=== PATIENT | male | born 1990 | race Caucasian/White ===

== ENCOUNTER 2016-07-21 12:48 | Emergency (ER) | payer BC ==
[2016-07-21] MEDS ORDERED: Ketorolac 60 MG/2 ML SDV IM ONE (14:37)
--- NOTE | 2016-07-21 14:52 | EDM.PDOC ---
ED HPI GENERAL MEDICAL PROBLEM - General Chief Complaint: Trauma Stated Complaint: INJURED ARM Time Seen by Provider: 07/21/16 13:15 Source of Information: Reports: Patient History Limitations: Reports: No Limitations - History of Present Illness INITIAL COMMENTS - FREE TEXT/NARRATIVE: History of present illness: [26-year-old male comes in status post fall down a flight of stairs. Patient indicates approximately 2 days ago he fell down 15 steps. Patient does indicate that he was altered but he doesn't say on what. He comes in now because he indicates he has a today rule that if he continues to have pain after today to seek medical attention.] Review of systems: As per history of present illness and below otherwise all systems reviewed and negative. Past medical history: As per history of present illness and as reviewed below otherwise noncontributory. Surgical history: As per history of present illness and as reviewed below otherwise noncontributory. Social history: No reported history of drug or alcohol abuse. Family history: As per history of present illness and as reviewed below otherwise noncontributory. Physical exam: HEENT: Atraumatic, normocephalic, pupils reactive, negative for conjunctival pallor or scleral icterus, mucous membranes moist, throat clear, neck supple, nontender, trachea midline. Lungs: Clear to auscultation, breath sounds equal bilaterally, chest nontender. Heart: S1S2, regular, negative for clicks, rubs, or JVD. Abdomen: Soft, nondistended, nontender. Negative for masses or hepatosplenomegaly. Negative for costovertebral tenderness. Pelvis: Stable nontender. Genitourinary: Deferred. Rectal: Deferred. Extremities: Left hand with some edema with full range of motion and no deficits noted negative for cords or calf pain. Neurovascular unremarkable. Neuro: Awake, alert, oriented. Cranial nerves II through XII unremarkable. Cerebellum unremarkable. Motor and sensory unremarkable throughout. Exam nonfocal. Diagnostics: [X-ray of C-spine, CT of head without contrast, x-ray three-view of left hand] Therapeutics: [Toradol 6 mg IM] Impression: [Multiple contusions] Plan: [Muscle relaxer, [id number] pain medication] Definitive disposition and diagnosis as appropriate pending reevaluation and review of above. Left Hand Pain Score (Numeric/FACES): 8 Neck Pain Score (Numeric/FACES): 5 - Related Data Allergies Allergy/AdvReac Type Severity Reaction Status Date / Time No Known Allergies Allergy Verified 07/21/16 12:59 Home Meds: Home Meds . [No Known Home Meds] 07/23/14 [History] Past Medical History - Past Health History Medical/Surgical History: Denies Medical/Surgical History HEENT History: Reports: None Cardiovascular History: Reports: None Respiratory History: Reports: Asthma Gastrointestinal History: Reports: None Genitourinary History: Reports: None Musculoskeletal History: Reports: None Neurological History: Reports: None Psychiatric History: Reports: None Endocrine/Metabolic History: Reports: None Hematologic History: Reports: None Immunologic History: Reports: None Oncologic (Cancer) History: Reports: None Dermatologic History: Reports: None - Infectious Disease History Infectious Disease History: Reports: Chicken Pox - Past Surgical History Head Surgeries/Procedures: Reports: None HEENT Surgical History: Reports: None Cardiovascular Surgical History: Reports: None Respiratory Surgical History: Reports: None GI Surgical History: Reports: None Male Surgical History: Reports: None Endocrine Surgical History: Reports: None Neurological Surgical History: Reports: None Musculoskeletal Surgical History: Reports: Other (See Below) Oncologic Surgical History: Reports: None Dermatological Surgical History: Reports: None Social & Family History - Family History Family Medical History: Noncontributory - Tobacco Use Smoking Status *Q: Never Smoker Years of Tobacco use: 6 Packs/Tins Daily: 1 - Caffeine Use Caffeine Use: Reports: None - Alcohol Use Days Per Week of Alcohol Use: 1 Number of Drinks Per Day: 6 Total Drinks Per Week: 6 - Recreational Drug Use Recreational Drug Use: No Review of Systems - Review of Systems Review Of Systems: See Below (The history of present illness) ED EXAM, TRAUMA (MAJOR/MULTI) - Physical Exam Exam: See Below (See history of present illness) Course - Vital Signs Last Recorded V/S: Last Vital Signs Temp 37.2 C 07/21/16 12:53 Pulse 77 07/21/16 12:53 Resp 18 07/21/16 12:53 BP 154/98 H 07/21/16 12:53 Pulse Ox 98 07/21/16 12:53 - Orders/Labs/Meds Orders: Active Orders 24 hr Category Date Time Status Cervical Spine 2V or 3V [CR] Stat Exams 07/21/16 13:16 Ordered Hand Comp Min 3V Lt [CR] Stat Exams 07/21/16 13:16 Ordered Head wo Cont [CT] Stat Exams 07/21/16 13:16 Ordered Departure - Departure Time of Disposition: 14:53 Disposition: Home, Self-Care 01 Condition: good Clinical Impression: Contusion, multiple sites - Discharge Information Forms: ED Department Discharge Additional Instructions: The following information is given to patients seen in the emergency department who are being discharged to home. This information is to outline your options for follow-up care. We provide all patients seen in our emergency department with a follow-up referral. The need for follow-up, as well as the timing and circumstances, are variable depending upon the specifics of your emergency department visit. If you don't have a primary care physician on staff, we will provide you with a referral. We always advise you to contact your personal physician following an emergency department visit to inform them of the circumstance of the visit and for follow-up with them and/or the need for any referrals to a consulting specialist. The emergency department will also refer you to a specialist when appropriate. This referral assures that you have the opportunity for follow-up care with a specialist. All of these measure are taken in an effort to provide you with optimal care, which includes your follow-up. Under all circumstances we always encourage you to contact your private physician who remains a resource for coordinating your care. When calling for follow-up care, please make the office aware that this follow-up is from your recent emergency room visit. If for any reason you are refused follow-up, please contact the [facility] Emergency Department at and asked to speak to the emergency department charge nurse. Take medication as directed Followup with PCP in one to 2 days Return to ED as needed as discussed - My Orders Last 24 Hours: My Active Orders 07/21/16 13:16 Cervical Spine 2V or 3V [CR] Stat Hand Comp Min 3V Lt [CR] Stat Head wo Cont [CT] Stat - Assessment/Plan Last 24 Hours: My Active Orders 07/21/16 13:16 Cervical Spine 2V or 3V [CR] Stat Hand Comp Min 3V Lt [CR] Stat Head wo Cont [CT] Stat
[2016-07-21 16:27] VITALS: BP 151/86
--- NOTE | 2016-07-22 16:44 | CT ---
EXAM DATE: 07/21/16 PATIENT'S AGE: 26 Patient: LEONID JOYCE Facility: [place], [place] Site . Site : 1990 Study: CT Head WO CONT [id number]/21/2017 1:33:18 PM Ordering Physician: Doctor Aguilar Final Report: INDICATION: Trauma; no loss of consciousness; headache . Comparison :none. Technique: CT head without intravenous contrast; coronal and sagittal reformats. Findings: No evidence of intracranial hemorrhage. No mass lesions. No evidence of shift of the midline structures. The ventricular system, the subarachnoid cisterns and the cerebral sulci are unremarkable. Cisterna magna is prominent; normal variant. Impression: Negative unenhanced head CT. Please note that all CT scans at this facility use dose modulation, iterative reconstruction, and/or weight-based dosing when appropriate to reduce radiation dose to as low as reasonably achievable. Dictated by Lasha Gabriel MD @ Jul 21 2016 2:14PM (Electronic Signature) Report Signed by Proxy. KRISTA
--- NOTE | 2016-07-22 16:45 | CR ---
EXAM DATE: 07/21/16 PATIENT'S AGE: 26 Patient: LEONID JOYCE Facility: [place], [place] Site . Site : 1990 Study: XRay Spine Cervical [id number]/21/2017 1:40:06 PM Ordering Physician: Doctor Aguilar Final Report: HISTORY: Neck pain after recent falling injury. Findings: Four views of the cervical spine are provided. There is straightening of the normal cervical lordosis on the lateral view. On the lateral view C7 is not reliably image. The vertebral bodies above this level are within normal limits and there is no evidence for fracture or subluxation. No soft tissue swelling is noted. Impression: Limited study due to nonvisualization of C7. In the visualized portions of the cervical spine, there are no findings for fracture. There is straightening of the normal cervical lordosis which could be due to positioning or muscle spasm. Dictated by Saul Perry MD @ Jul 21 2016 2:15PM (Electronic Signature) Report Signed by Proxy. KRISTA
--- NOTE | 2016-07-22 16:46 | CR ---
EXAM DATE: 07/21/16 PATIENT'S AGE: 26 Patient: LEONID JOYCE Facility: [place], [place] Site . Site : 1990 Study: XRay Extremity Left HAND [id number]/21/2017 1:41:39 PM Ordering Physician: Doctor gAuilar Final Report: HISTORY: Pain after falling injury recently. Findings: Three views of the left hand are provided. There are no findings for fracture, dislocation or arthritic change. No foreign body is noted. Dictated by Saul Perry MD @ Jul 21 2016 2:15PM (Electronic Signature) Report Signed by Proxy. KRISTA
== END 2016-07-21 15:03 | disposition home or self-care (01) ==
LOC: MW.ED 12:48
DX: S60.222A Contusion of left hand, initial encounter (principal); J45.909 Unspecified asthma, uncomplicated; W10.8XXA Fall (on) (from) other stairs and steps, initial encounter
CPT/HCPCS: 70450; 72040; 73130; 96372; 99284; J1885; 99283

== ENCOUNTER 2023-07-16 00:19 | Emergency (ER) | payer BC ==
[2023-07-16] MEDS: Amoxicillin/Clavulanate K 875-125 MG Tab PO ONE (01:06)
[2023-07-16] MEDS: Lidocaine 1% 5 ML VIAL INJECT ONE (01:07)
[2023-07-16] MEDS: Bupivacaine 0.5% 10 ML SDV INJECT ONE (01:07)
[2023-07-16 01:31] VITALS: BP 128/79; PULSE 75
== END 2023-07-16 01:31 | disposition home or self-care (01) ==
LOC: MW.ED 00:19
DX: K02.9 Dental caries, unspecified (principal); Z79.899 Other long term (current) drug therapy
CPT/HCPCS: 64400; 99282; A9270; J0665; 99283; J3490